=== PATIENT | female | born 1995 | race Caucasian/White ===

== ENCOUNTER → 2017-06-29 | Outpatient (CLI) | payer OTHER | LOC: M LRY 17:28 | DX: S49.92XA Unspecified injury of left shoulder and upper arm, initial encounter (principal); X58.XXXA Exposure to other specified factors, initial encounter; Y92.89 Other specified places as the place of occurrence of the external cause | CPT/HCPCS: 73030; G0463 ==

== ENCOUNTER → 2017-07-28 | Outpatient (REF) | payer OTHER ==
[2017-07-28 20:47] LABS: HCG, SERUM QUANTITATIVE 739 MIU/ML
== END ==
LOC: M SFHCLERA 18:35
DX: Z3A.01 Less than 8 weeks gestation of pregnancy (principal)

== ENCOUNTER 2017-08-07 21:30 | Emergency (ER) | payer OTHER ==
[2017-08-07] MEDS: ONDANSETRON 4 MG ORAL DISINTEGRATING TAB (Q0162 PER 1MG) PO (22:30)
== END 2017-08-08 00:11 | disposition home or self-care (01) ==
LOC: M ED 08-08 00:11
DX: S30.1XXA Contusion of abdominal wall, initial encounter (principal); S80.11XA Contusion of right lower leg, initial encounter; Y04.8XXA Assault by other bodily force, initial encounter; Y92.9 Unspecified place or not applicable; Y93.9 Activity, unspecified; Y99.9 Unspecified external cause status; Z3A.01 Less than 8 weeks gestation of pregnancy; Z88.6 Allergy status to analgesic agent; Z88.8 Allergy status to other drugs, medicaments and biological substances
CPT/HCPCS: Q0162